=== PATIENT | male | born 1935 | race Caucasian/White ===

== ENCOUNTER 2018-12-12 18:45 | Inpatient (IN) ==
[2018-12-12] MEDS ORDERED: ACETAMINOPHEN 650 MG SUPP RECTAL ONE (19:25)
[2018-12-12] MEDS ORDERED: SODIUM CHLORIDE 0.9% 1,000 ML IV STA (19:33)
[2018-12-12] MEDS ORDERED: ACETAMINOPHEN 650 MG SUPP RECTAL STA (19:33)
[2018-12-12 19:38] LABS: Basophils # 0.1 10*3/uL (0.0-0.2); Basophils % 0.6 % (0.0-0.8); Hematocrit 33.2 VOL% (42.0-52.0); Hemoglobin 10.4 GM/DL (14.0-18.0); Immature Granulocytes % 0.5 %; Immature Granulocytes Absolute 0.04 #; Lymphocytes % 11.2 % (21.2-54.2); Mean Corpuscular HGB Conc 31.3 GM/DL (32-36); Mean Corpuscular Volume 95.4 FL (87-102); Monocytes % 7.7 % (1.7-12.7); Platelet Count 195 T/CUMM (130-400); Red Blood Count 3.48 MC/CUMM (3.8-5.5); Red Cell Distribution Width 17.2 % (9.3-17.3); White Blood Count 8.7 T/CUMM (4-12)
[2018-12-12 19:44] LABS: Apearance,Urine Slightly Hazy (Clear); Bilirubin,Urine Negative (Negative); Blood, Urine Large mg/dL (Negative); Glucose,Urine (UA) Negative (Negative); Ketones,Urine Negative (Negative); Nitrite,Urine Negative (Negative); Protein,Urine Negative; RBC,Urine 24 /HPF (0-4); Squamous Epithelial Cell,Urine Occasional /HPF (0-10); Urine Color Yellow (Yellow); Urine Specific Gravity 1.012 (1.001-1.035); Urine Urobilinogen < 2.0 EU/DL (0.2-1.0); WBC,Urine 42 /HPF (0-6)
[2018-12-12] MEDS ORDERED: cefTRIAXone 1,000 MG in SODIUM CHLORIDE 0.9% 100 ML IV STA (19:55)
[2018-12-12 19:56] LABS: Alanine Aminotransferase < 9 U/L (16-61); Albumin 2.7 G/DL (3.4-5.0); Alkaline Phosphatase 82 U/L (45-117); Aspartate Amino Transferase 15 U/L (0-37); Blood Urea Nitrogen 45 MG/DL (7-18); Calcium 8.7 MG/DL (8.5-10.1); Glucose 105 MG/DL (74-106); Osmolality,Calculated 299.7 MOS/KG (273-304)
[2018-12-12] MEDS ORDERED: PIPERACILLIN/TAZOBACTAM 3,375 MG in SODIUM CHLORIDE 0.9% 100 ML IV STA (20:00)
[2018-12-12] MEDS ORDERED: ONDANSETRON 4 MG/2 ML VIAL IV PRN (22:42)
[2018-12-12] MEDS ORDERED: ALBUTEROL 2.5 MG/3 ML NEB RESP TX PRN (22:42)
[2018-12-12] MEDS ORDERED: DEXTROSE 50% 25 GM/50 ML VIAL IV PRN ×2 (22:42)
[2018-12-12] MEDS ORDERED: GLUCAGON 1 MG VIAL IM PRN ×2 (22:42)
[2018-12-12] MEDS: LEVOFLOXACIN INJ 750 MG in PREMIX 1 EACH IV SCH (23:10)
[2018-12-13] MEDS: ALBUTEROL/IPRATROPIUM 3 ML NEB RESP TX SCH ×5 (00:46→23:53)
[2018-12-13] MEDS: ACETAMINOPHEN 325 MG TABLET PO PRN ×2 (03:16→20:42)
[2018-12-13] MEDS ORDERED: dimenhyDRINATE 50 MG TABLET PO PRN (03:34)
[2018-12-13] MEDS ORDERED: DIMENHYDRINATE 50 MG IM PRN (03:34)
[2018-12-13] MEDS: CARBIDOPA/LEVODOPA 25-100 MG TABLET PO SCH ×4 (04:50→20:42)
[2018-12-13] MEDS: HALOPERIDOL 5 MG/ML AMP IV PRN ×2 (05:28→20:42)
[2018-12-13] MEDS: INSULIN REGULAR 100 UNIT/ML SUBCUT SCH ×4 (07:32→20:43)
[2018-12-13 08:16] LABS: Basophils # 0.1 10*3/uL (0.0-0.2); Basophils % 0.9 % (0.0-0.8); Eosinophils # 0.1 10*3/uL (0.0-0.87); Hematocrit 30.7 VOL% (42.0-52.0); Hemoglobin 9.7 GM/DL (14.0-18.0); Immature Granulocytes % 0.7 %; Immature Granulocytes Absolute 0.07 #; Lymphocytes # 0.8 10*3/uL (1.4-4.0); Lymphocytes % 8.6 % (21.2-54.2); Mean Corpuscular HGB Conc 31.6 GM/DL (32-36); Mean Corpuscular Volume 96.2 FL (87-102); Mean Platelet Volume 10.3 FL (9.6-12.0); Monocytes % 10.4 % (1.7-12.7); Neutrophils % 78.4 % (38.7-73.9); Platelet Count 183 T/CUMM (130-400); Red Blood Count 3.19 MC/CUMM (3.8-5.5); Red Cell Distribution Width 17.2 % (9.3-17.3); White Blood Count 9.6 T/CUMM (4-12)
[2018-12-13 08:32] LABS: Alanine Aminotransferase < 6 U/L (16-61); Albumin 2.5 G/DL (3.4-5.0); Alkaline Phosphatase 69 U/L (45-117); Aspartate Amino Transferase 13 U/L (0-37); Bilirubin,Total < 0.39 MG/DL (0.2-1.0); Blood Urea Nitrogen 43 MG/DL (7-18); Calcium 8.5 MG/DL (8.5-10.1); Glucose 95 MG/DL (74-106); Osmolality,Calculated 300.6 MOS/KG (273-304); Total Protein 6.4 G/DL (6.4-8.3)
[2018-12-13] MEDS ORDERED: DOCUSATE SODIUM 100 MG CAPSULE PO SCH (09:00)
[2018-12-13] MEDS ORDERED: ENOXAPARIN 30 MG/0.3 ML SYRINGE SUBCUT SCH (09:00)
[2018-12-13] MEDS: FAMOTIDINE 20 MG/2 ML VIAL IV SCH (09:03)
[2018-12-13] MEDS: PIPERACILLIN/TAZOBACTAM 3,375 MG in SODIUM CHLORIDE 0.9% 100 ML IV SCH ×2 (09:03→20:42)
[2018-12-13] MEDS: SODIUM CHLORIDE 0.9% 1,000 ML IV SCH ×4 (09:03→20:43)
[2018-12-13] MEDS: ASPIRIN EC 81 MG TABLET PO SCH (10:25)
[2018-12-13] MEDS: FINASTERIDE 5 MG TABLET PO SCH (10:25)
[2018-12-13] MEDS: hydroCHLOROthiazide 12.5 MG CAPSULE PO SCH (10:25)
[2018-12-13] MEDS: ALLOPURINOL 300 MG TABLET PO SCH (10:26)
[2018-12-13] MEDS: MIDODRINE 5 MG TABLET PO SCH ×2 (14:58→20:41)
[2018-12-13] MEDS: PANTOPRAZOLE 40 MG TABLET PO SCH (15:02)
[2018-12-13] MEDS: TAMSULOSIN 0.4 MG CAPSULE PO SCH (15:07)
[2018-12-13] MEDS ORDERED: DOCUSATE/SENNA 50-8.6 MG TABLET PO PRN (15:49)
[2018-12-13] MEDS: MIRTAZAPINE 15 MG TABLET PO SCH (20:41)
[2018-12-13] MEDS: QUEtiapine 25 MG TABLET PO SCH (20:41)
[2018-12-14] MEDS: ACETAMINOPHEN 325 MG TABLET PO PRN (05:50)
[2018-12-14 06:14] LABS: Basophils # 0.1 10*3/uL (0.0-0.2); Basophils % 0.7 % (0.0-0.8); Eosinophils # 0.3 10*3/uL (0.0-0.87); Eosinophils % 3.4 % (0.00-10.9); Hematocrit 29.8 VOL% (42.0-52.0); Hemoglobin 9.4 GM/DL (14.0-18.0); Immature Granulocytes % 0.5 %; Immature Granulocytes Absolute 0.04 #; Lymphocytes # 1.1 10*3/uL (1.4-4.0); Mean Corpuscular HGB Conc 31.5 GM/DL (32-36); Mean Corpuscular Volume 95.5 FL (87-102); Mean Platelet Volume 9.6 FL (9.6-12.0); Monocytes % 9.6 % (1.7-12.7); Neutrophils % 71.8 % (38.7-73.9); Platelet Count 157 T/CUMM (130-400); Red Blood Count 3.12 MC/CUMM (3.8-5.5); White Blood Count 8.2 T/CUMM (4-12)
[2018-12-14 06:28] LABS: Alanine Aminotransferase < 6 U/L (16-61); Albumin 2.4 G/DL (3.4-5.0); Alkaline Phosphatase 63 U/L (45-117); Aspartate Amino Transferase 13 U/L (0-37); Blood Urea Nitrogen 36 MG/DL (7-18); Calcium 8.7 MG/DL (8.5-10.1); Glucose 125 MG/DL (74-106); Osmolality,Calculated 294.8 MOS/KG (273-304); Total Protein 6.2 G/DL (6.4-8.3)
[2018-12-14] MEDS: ALBUTEROL/IPRATROPIUM 3 ML NEB RESP TX SCH ×3 (07:05→19:22)
[2018-12-14] MEDS ORDERED: HALOPERIDOL 5 MG/ML AMP IM PRN (09:30)
[2018-12-14] MEDS: ALLOPURINOL 300 MG TABLET PO SCH (09:36)
[2018-12-14] MEDS: ASPIRIN EC 81 MG TABLET PO SCH (09:36)
[2018-12-14] MEDS: MIDODRINE 5 MG TABLET PO SCH ×3 (09:36→20:43)
[2018-12-14] MEDS: FINASTERIDE 5 MG TABLET PO SCH (09:37)
[2018-12-14] MEDS: TAMSULOSIN 0.4 MG CAPSULE PO SCH (09:37)
[2018-12-14] MEDS: FAMOTIDINE 20 MG/2 ML VIAL IV SCH (09:37)
[2018-12-14] MEDS: PANTOPRAZOLE 40 MG TABLET PO SCH (09:37)
[2018-12-14] MEDS: hydroCHLOROthiazide 12.5 MG CAPSULE PO SCH (09:37)
[2018-12-14] MEDS: ENOXAPARIN 40 MG/0.4 ML SYRINGE SUBCUT SCH (09:39)
[2018-12-14] MEDS: CARBIDOPA/LEVODOPA 25-100 MG TABLET PO SCH ×3 (09:39→20:43)
[2018-12-14] MEDS: PIPERACILLIN/TAZOBACTAM 3,375 MG in SODIUM CHLORIDE 0.9% 100 ML IV SCH ×2 (09:42→16:43)
[2018-12-14] MEDS: SODIUM CHLORIDE 0.9% 1,000 ML IV SCH (09:43)
[2018-12-14] MEDS: INSULIN REGULAR 100 UNIT/ML SUBCUT SCH ×4 (11:05→20:27)
[2018-12-14] MEDS: QUEtiapine 25 MG TABLET PO SCH (20:42)
[2018-12-14] MEDS: MIRTAZAPINE 15 MG TABLET PO SCH (20:42)
[2018-12-14] MEDS: LEVOFLOXACIN INJ 750 MG in PREMIX 1 EACH IV SCH (21:39)
[2018-12-15] MEDS: ALBUTEROL/IPRATROPIUM 3 ML NEB RESP TX SCH ×3 (00:05→14:30)
[2018-12-15] MEDS: PIPERACILLIN/TAZOBACTAM 3,375 MG in SODIUM CHLORIDE 0.9% 100 ML IV SCH ×2 (01:03→09:05)
[2018-12-15] MEDS: ACETAMINOPHEN 325 MG TABLET PO PRN (04:40)
[2018-12-15 06:11] LABS: Basophils # 0.1 10*3/uL (0.0-0.2); Basophils % 0.6 % (0.0-0.8); Eosinophils # 0.2 10*3/uL (0.0-0.87); Eosinophils % 2.1 % (0.00-10.9); Hematocrit 29.4 VOL% (42.0-52.0); Hemoglobin 9.4 GM/DL (14.0-18.0); Immature Granulocytes % 0.7 %; Immature Granulocytes Absolute 0.06 #; Lymphocytes # 1.1 10*3/uL (1.4-4.0); Lymphocytes % 12.8 % (21.2-54.2); Mean Corpuscular Volume 92.5 FL (87-102); Mean Platelet Volume 10.6 FL (9.6-12.0); Monocytes % 8.6 % (1.7-12.7); Neutrophils % 75.2 % (38.7-73.9); Platelet Count 167 T/CUMM (130-400); Red Blood Count 3.18 MC/CUMM (3.8-5.5); Red Cell Distribution Width 16.9 % (9.3-17.3); White Blood Count 8.9 T/CUMM (4-12)
[2018-12-15 06:20] LABS: Alanine Aminotransferase < 9 U/L (16-61); Albumin 2.3 G/DL (3.4-5.0); Alkaline Phosphatase 59 U/L (45-117); Aspartate Amino Transferase 15 U/L (0-37); Blood Urea Nitrogen 32 MG/DL (7-18); Calcium 8.6 MG/DL (8.5-10.1); Glucose 106 MG/DL (74-106)
[2018-12-15] MEDS: INSULIN REGULAR 100 UNIT/ML SUBCUT SCH ×3 (07:34→15:56)
[2018-12-15] MEDS: MIDODRINE 5 MG TABLET PO SCH ×2 (09:03→15:48)
[2018-12-15] MEDS: hydroCHLOROthiazide 12.5 MG CAPSULE PO SCH (09:03)
[2018-12-15] MEDS: PANTOPRAZOLE 40 MG TABLET PO SCH (09:03)
[2018-12-15] MEDS: CARBIDOPA/LEVODOPA 25-100 MG TABLET PO SCH ×2 (09:04→15:48)
[2018-12-15] MEDS: FAMOTIDINE 20 MG/2 ML VIAL IV SCH (09:04)
[2018-12-15] MEDS: TAMSULOSIN 0.4 MG CAPSULE PO SCH (09:04)
[2018-12-15] MEDS: FINASTERIDE 5 MG TABLET PO SCH (09:04)
[2018-12-15] MEDS: ALLOPURINOL 300 MG TABLET PO SCH (09:04)
[2018-12-15] MEDS: ASPIRIN EC 81 MG TABLET PO SCH (09:04)
[2018-12-15] MEDS: ENOXAPARIN 40 MG/0.4 ML SYRINGE SUBCUT SCH (09:05)
[2018-12-15] MEDS ORDERED: ZINC OXIDE PASTE 113 GM TUBE TOP SCH (12:30)
[2018-12-15 15:48] VITALS: BP 146/74
[2018-12-15] MEDS: SODIUM CHLORIDE 0.9% 1,000 ML IV SCH (15:56)
== END 2018-12-15 16:25 | DRG 193 ==
LOC: EDBD → EDUNIT# → N.ED 18:45 → SUATTDRO 22:42 → N.EDINP 22:42 → N.CC 23:02 → N.2E 12-13 15:53
PROVIDERS: ADMIT Family Medicine; ATTEND Internal Medicine

== ENCOUNTER 2018-12-19 18:56 | Inpatient (IN) ==
[2018-12-19] MEDS ORDERED: LACTATED RINGERS 500 ML IV ONE (19:41)
[2018-12-19 20:25] LABS: Basophils # 0.1 10*3/uL (0.0-0.2); Basophils % 0.6 % (0.0-0.8); Eosinophils # 0.3 10*3/uL (0.0-0.87); Eosinophils % 2.9 % (0.00-10.9); Hematocrit 30.7 VOL% (42.0-52.0); Hemoglobin 9.6 GM/DL (14.0-18.0); Immature Granulocytes % 0.5 %; Immature Granulocytes Absolute 0.05 #; Lymphocytes # 0.8 10*3/uL (1.4-4.0); Lymphocytes % 7.9 % (21.2-54.2); Mean Corpuscular HGB Conc 31.3 GM/DL (32-36); Mean Corpuscular Volume 94.5 FL (87-102); Mean Platelet Volume 10.5 FL (9.6-12.0); Neutrophils % 82.1 % (38.7-73.9); Platelet Count 233 T/CUMM (130-400); Red Blood Count 3.25 MC/CUMM (3.8-5.5); Red Cell Distribution Width 17.2 % (9.3-17.3)
[2018-12-19] MEDS ORDERED: PIPERACILLIN/TAZOBACTAM 3,375 MG in SODIUM CHLORIDE 0.9% 100 ML IV STA ×2 (20:48→20:56)
[2018-12-19 20:50] LABS: Albumin 2.3 G/DL (3.4-5.0); Bilirubin,Total 0.4 MG/DL (0.2-1.0); Calcium 8.9 MG/DL (8.5-10.1); Osmolality,Calculated 291.8 MOS/KG (273-304); Total Protein 6.6 G/DL (6.4-8.3)
[2018-12-19] MEDS ORDERED: guaiFENesin/DM ER 600-30 MG TABLET PO PRN (22:26)
[2018-12-19] MEDS ORDERED: ONDANSETRON 4 MG/2 ML VIAL IV PRN (22:26)
[2018-12-19] MEDS ORDERED: NICOTINE 21 MG/24 HR PATCH TRANSDERM PRN (22:26)
[2018-12-19] MEDS ORDERED: MORPHINE 4 MG/1 ML VIAL IV PRN (22:26)
[2018-12-19] MEDS ORDERED: ACETAMINOPHEN 650 MG SUPP RECTAL PRN (22:26)
[2018-12-19] MEDS ORDERED: diphenhydrAMINE CAP 25 MG CAPSULE PO PRN (22:26)
[2018-12-19 23:45] LABS: ABG HCO3 25.3 MMOL/L (20-26); ABG PCO2 38.6 MM HG (35-48); ABG PH 7.425 (7.35-7.45); ABG PO2 79.7 MM HG (80-95); ABG TCO2 23.1 MMOL/L (23-27)
[2018-12-20] MEDS ORDERED: LEVOFLOXACIN INJ 750 MG in PREMIX 1 EACH IV SCH
[2018-12-20] MEDS: PIPERACILLIN/TAZOBACTAM 3,375 MG in SODIUM CHLORIDE 0.9% 100 ML IV SCH ×3 (04:27→21:08)
[2018-12-20 05:56] LABS: Basophils % 0.3 % (0.0-0.8); Eosinophils # 0.4 10*3/uL (0.0-0.87); Eosinophils % 3.8 % (0.00-10.9); Hematocrit 28.8 VOL% (42.0-52.0); Hemoglobin 9.2 GM/DL (14.0-18.0); Immature Granulocytes % 0.6 %; Immature Granulocytes Absolute 0.06 #; Lymphocytes # 0.9 10*3/uL (1.4-4.0); Lymphocytes % 9.3 % (21.2-54.2); Mean Corpuscular HGB Conc 31.9 GM/DL (32-36); Mean Corpuscular Volume 93.8 FL (87-102); Monocytes % 6.7 % (1.7-12.7); Neutrophils % 79.3 % (38.7-73.9); Platelet Count 217 T/CUMM (130-400); Red Blood Count 3.07 MC/CUMM (3.8-5.5); White Blood Count 9.9 T/CUMM (4-12)
[2018-12-20] MEDS: FINASTERIDE 5 MG TABLET PO SCH ×2 (08:22→08:42)
[2018-12-20] MEDS: ASPIRIN EC 81 MG TABLET PO SCH ×2 (08:22→08:41)
[2018-12-20] MEDS: GLIMEPIRIDE 2 MG TABLET PO SCH ×2 (08:22→08:41)
[2018-12-20] MEDS: TAMSULOSIN 0.4 MG CAPSULE PO SCH ×2 (08:23→08:42)
[2018-12-20] MEDS: CARBIDOPA/LEVODOPA 25-100 MG TABLET PO SCH ×4 (08:30→21:08)
[2018-12-20] MEDS: DOCUSATE SODIUM 100 MG CAPSULE PO SCH ×3 (08:30→21:08)
[2018-12-20] MEDS: MIDODRINE 5 MG TABLET PO SCH ×3 (08:42→21:08)
[2018-12-20] MEDS ORDERED: LIDOCAINE 2% TOP JELLY 20 ML VIAL INTRAURETH ONE ×2 (14:07→14:30)
[2018-12-20 16:15] LABS: Apearance,Urine CLEAR (Clear); Bacteria,Urine Occasional /HPF (Few); Bilirubin,Urine Negative (Negative); Blood, Urine Moderate mg/dL (Negative); Glucose,Urine (UA) Negative (Negative); Ketones,Urine Negative (Negative); Mucus,Urine Occasional /LPF (Occasional); Nitrite,Urine Negative (Negative); Protein,Urine Negative; RBC,Urine 24 /HPF (0-4); Urine Color Yellow (Yellow); Urine Specific Gravity 1.011 (1.001-1.035); Urine Urobilinogen < 2.0 EU/DL (0.2-1.0); WBC,Urine 5 /HPF (0-6)
[2018-12-21 04:47] LABS: Basophils % 0.4 % (0.0-0.8); Eosinophils # 0.1 10*3/uL (0.0-0.87); Hematocrit 31.7 VOL% (42.0-52.0); Immature Granulocytes % 0.4 %; Immature Granulocytes Absolute 0.04 #; Lymphocytes # 0.9 10*3/uL (1.4-4.0); Mean Corpuscular HGB Conc 31.5 GM/DL (32-36); Mean Corpuscular Volume 94.1 FL (87-102); Mean Platelet Volume 10.3 FL (9.6-12.0); Monocytes % 5.4 % (1.7-12.7); Neutrophils % 82.8 % (38.7-73.9); Platelet Count 262 T/CUMM (130-400); Red Blood Count 3.37 MC/CUMM (3.8-5.5); Red Cell Distribution Width 17.2 % (9.3-17.3)
[2018-12-21 05:19] LABS: Calcium 9.3 MG/DL (8.5-10.1); Osmolality,Calculated 301.1 MOS/KG (273-304)
[2018-12-21] MEDS: PIPERACILLIN/TAZOBACTAM 3,375 MG in SODIUM CHLORIDE 0.9% 100 ML IV SCH ×3 (06:12→21:21)
[2018-12-21] MEDS: DEXTROSE 5% 1,000 ML IV SCH (10:23)
[2018-12-21] MEDS: CARBIDOPA/LEVODOPA 25-100 MG TABLET PO SCH ×2 (10:23→14:56)
[2018-12-21] MEDS: FINASTERIDE 5 MG TABLET PO SCH (10:23)
[2018-12-21] MEDS: DOCUSATE SODIUM 100 MG CAPSULE PO SCH (10:24)
[2018-12-21] MEDS: ASPIRIN EC 81 MG TABLET PO SCH (10:24)
[2018-12-21] MEDS: MIDODRINE 5 MG TABLET PO SCH ×2 (10:24→14:56)
[2018-12-21] MEDS: TAMSULOSIN 0.4 MG CAPSULE PO SCH (10:24)
[2018-12-21] MEDS: GLIMEPIRIDE 2 MG TABLET PO SCH (10:24)
[2018-12-22 00:19] LABS: Basophils # 0.1 10*3/uL (0.0-0.2); Basophils % 0.6 % (0.0-0.8); Eosinophils % 0.1 % (0.00-10.9); Hematocrit 32.1 VOL% (42.0-52.0); Hemoglobin 9.9 GM/DL (14.0-18.0); Immature Granulocytes % 0.5 %; Immature Granulocytes Absolute 0.05 #; Lymphocytes # 0.8 10*3/uL (1.4-4.0); Mean Corpuscular HGB Conc 30.8 GM/DL (32-36); Mean Platelet Volume 9.9 FL (9.6-12.0); Monocytes % 5.7 % (1.7-12.7); Neutrophils % 84.1 % (38.7-73.9); Platelet Count 280 T/CUMM (130-400); Red Blood Count 3.38 MC/CUMM (3.8-5.5); Red Cell Distribution Width 17.1 % (9.3-17.3); White Blood Count 9.4 T/CUMM (4-12)
[2018-12-22] MEDS: PIPERACILLIN/TAZOBACTAM 3,375 MG in SODIUM CHLORIDE 0.9% 100 ML IV SCH ×3 (04:40→21:53)
[2018-12-22 04:51] LABS: Basophils # 0.1 10*3/uL (0.0-0.2); Basophils % 0.5 % (0.0-0.8); Eosinophils % 0.1 % (0.00-10.9); Hematocrit 31.7 VOL% (42.0-52.0); Hemoglobin 9.8 GM/DL (14.0-18.0); Immature Granulocytes % 0.4 %; Immature Granulocytes Absolute 0.04 #; Lymphocytes # 0.9 10*3/uL (1.4-4.0); Lymphocytes % 9.9 % (21.2-54.2); Mean Corpuscular HGB Conc 30.9 GM/DL (32-36); Mean Corpuscular Volume 95.8 FL (87-102); Mean Platelet Volume 9.9 FL (9.6-12.0); Monocytes % 7.5 % (1.7-12.7); Neutrophils % 81.6 % (38.7-73.9); Platelet Count 287 T/CUMM (130-400); Red Blood Count 3.31 MC/CUMM (3.8-5.5); White Blood Count 9.1 T/CUMM (4-12)
[2018-12-22] MEDS: DEXTROSE 5% 1,000 ML IV SCH ×2 (04:51→18:29)
[2018-12-22 06:17] LABS: Calcium 8.4 MG/DL (8.5-10.1)
[2018-12-22 06:18] LABS: Osmolality,Calculated 299.6 MOS/KG (273-304)
[2018-12-22] MEDS ORDERED: VANCOMYCIN INJ 1,000 MG in SODIUM CHLORIDE 0.9% 250 ML IV SCH (08:30)
[2018-12-22] MEDS: VANCOMYCIN INJ 1,250 MG in SODIUM CHLORIDE 0.9% 250 ML IV SCH (11:10)
[2018-12-22] MEDS: MIDODRINE 5 MG TABLET PO SCH ×4 (15:07→21:53)
[2018-12-22] MEDS: CARBIDOPA/LEVODOPA 25-100 MG TABLET PO SCH ×3 (15:07→21:53)
[2018-12-22] MEDS: DOCUSATE SODIUM 100 MG CAPSULE PO SCH ×3 (15:07→21:53)
[2018-12-22 15:17] LABS: ABG Base Excess -2.6 MMOL/L (-2.5-2.5); ABG PO2 63.6 MM HG (80-95); ABG TCO2 27.7 MMOL/L (23-27)
[2018-12-22 15:42] LABS: ABG PCO2 88.5 MM HG (35-48); ABG PH 7.129 (7.35-7.45)
[2018-12-22] MEDS: TAMSULOSIN 0.4 MG CAPSULE PO SCH (17:04)
[2018-12-22] MEDS: GLIMEPIRIDE 2 MG TABLET PO SCH (17:04)
[2018-12-22] MEDS: ASPIRIN EC 81 MG TABLET PO SCH (17:04)
[2018-12-22] MEDS: FINASTERIDE 5 MG TABLET PO SCH (17:05)
[2018-12-23] MEDS: DEXTROSE 5% 1,000 ML IV SCH ×2 (04:44→10:09)
[2018-12-23] MEDS: PIPERACILLIN/TAZOBACTAM 3,375 MG in SODIUM CHLORIDE 0.9% 100 ML IV SCH (04:45)
[2018-12-23] MEDS: GLIMEPIRIDE 2 MG TABLET PO SCH (07:48)
[2018-12-23] MEDS: ASPIRIN EC 81 MG TABLET PO SCH (08:22)
[2018-12-23] MEDS: TAMSULOSIN 0.4 MG CAPSULE PO SCH (08:23)
[2018-12-23] MEDS: FINASTERIDE 5 MG TABLET PO SCH (08:23)
[2018-12-23] MEDS: DOCUSATE SODIUM 100 MG CAPSULE PO SCH (08:23)
[2018-12-23] MEDS: MIDODRINE 5 MG TABLET PO SCH (08:23)
[2018-12-23] MEDS: CARBIDOPA/LEVODOPA 25-100 MG TABLET PO SCH (08:23)
[2018-12-23] MEDS: VANCOMYCIN INJ 1,250 MG in SODIUM CHLORIDE 0.9% 250 ML IV SCH (10:09)
[2018-12-23 13:38] VITALS: BP 72/52
== END 2018-12-23 12:09 | disposition expired | DRG 193 ==
LOC: EDBD → EDUNIT# → N.ED 18:56 → N.EDINP 18:56 → N.5E 23:02
PROVIDERS: ADMIT Internal Medicine; ATTEND Internal Medicine